=== PATIENT | male | born 1950 | race African-American/Black ===

== ENCOUNTER 2018-04-14 12:27 | Emergency (ER) | payer OTHER, MEDICAID ==
[~2018-04-14] VITALS: Ht 190.5 cm; Wt 81.6 kg
[2018-04-14 12:31] VITALS: BP 177/90; Ht 190.5 cm; Wt 81.6 kg
== END 2018-04-14 14:10 | disposition home or self-care (01) ==
LOC: ED 12:27
DX: S40.011A Contusion of right shoulder, initial encounter (principal); S70.01XA Contusion of right hip, initial encounter; I10 Essential (primary) hypertension; E11.9 Type 2 diabetes mellitus without complications; K21.9 Gastro-esophageal reflux disease without esophagitis; I21.9 Acute myocardial infarction, unspecified; Z88.0 Allergy status to penicillin; W18.30XA Fall on same level, unspecified, initial encounter; Y93.89 Activity, other specified; Y92.89 Other specified places as the place of occurrence of the external cause; Y99.8 Other external cause status